=== PATIENT | female | born 1950 | race Caucasian/White ===

== ENCOUNTER 2019-11-27 16:05 | Inpatient (IN) | payer MEDICAID ==
[~2019-11-27] VITALS: Ht 154.9 cm; Wt 68.9 kg
[2019-11-27 21:48] LABS: CHLORIDE 105 mEq/L (98-107)
[2019-11-27 21:52] LABS: INR 1.2; PROTHROMBIN TIME 12.9 sec (9.6-11.0)
[2019-11-27] MEDS ORDERED: SODIUM CHLORIDE 0.9% 1,000 ML IV ONE (22:00)
[2019-11-27] MEDS ORDERED: ONDANSETRON HCL 4MG/2ML INJ IV STA (22:00)
[2019-11-27 22:01] LABS: HEMATOCRIT. 36.4 % (36.0-48.0); MEAN CORPUSCULAR HEMOGLOBIN 35.1 pg (28.0-32.0); MEAN CORPUSCULAR VOLUME 98.1 fL (81.0-99.0); MEAN PLATELET VOLUME 9.6 fl (7.4-10.4); PLATELET 360 x1000/uL (130-400); RED BLOOD CELL COUNT 3.71 mill/uL (4.2-5.4); RED CELL DISTRIBUTION WIDTH 14.9 % (11.6-14.6)
[2019-11-27 22:27] LABS: NUCLEATED RED BLOOD CELLS 1 /100 WBC; PLATELET ESTIMATE NORMAL
[2019-11-27 22:50] LABS: HEPATITIS B SURFACE ANTIGEN NEGATIVE
[2019-11-27 23:20] LABS: HEPATITIS A AB IGM NEGATIVE (NEGATIVE)
[2019-11-28] MEDS ORDERED: IOHEXOL-300 100 ML BOTTLE ONE (01:51)
[2019-11-28] MEDS: HEPARIN 5000 UNITS/ML VIAL SUBCUT SCH (11:00)
[2019-11-28] MEDS ORDERED: SODIUM CHLORIDE 0.9% 1,000 ML IV SCH (11:08)
[2019-11-28] MEDS ORDERED: ONDANSETRON HCL 4MG/2ML INJ IV PRN (11:15)
[2019-11-28] MEDS ORDERED: ACETAMINOPHEN 325MG TABLET PO PRN (11:15)
[2019-11-28] MEDS ORDERED: DEXTROSE 50% WATER 50ML SYRINGE IV PRN (11:15)
[2019-11-28 11:25] VITALS: BP 147/61
[2019-11-28 11:30] VITALS: BP 147/61
[2019-11-28] MEDS: BLOOD SUGAR DIAGNOSTIC STRIP TEST SCH ×4 (11:30→21:10)
[2019-11-28] MEDS: INSULIN LISPRO 100 UNITS/ML SUBCUT SCH ×3 (13:31→21:10)
[2019-11-28] MEDS ORDERED: PIPERACILLIN/TAZOBACTAM 3.375 G/VIAL IV SCH (14:00)
[2019-11-28] MEDS: PIPERACILLIN/TAZOBACTAM 3.375 G in DEXT 5% WATER 100 ML IV SCH ×2 (15:33→23:56)
[2019-11-28 16:00] VITALS: BP 148/61
[2019-11-28] MEDS ORDERED: LISI-186 PO (16:20)
[2019-11-28 20:00] VITALS: BP 132/62
[2019-11-28] MEDS ORDERED: TRAZODONE HCL 50MG TABLET PO PRN (21:00)
[2019-11-29] VITALS (19 sets, daily range): BP systolic 132–169; BP diastolic 60–112
[2019-11-29] MEDS: PIPERACILLIN/TAZOBACTAM 3.375 G in DEXT 5% WATER 100 ML IV SCH ×3 (05:50→21:22)
[2019-11-29] MEDS: BLOOD SUGAR DIAGNOSTIC STRIP TEST SCH ×4 (06:21→21:22)
[2019-11-29 06:46] LABS: CHLORIDE 108 mEq/L (98-107)
[2019-11-29 07:15] LABS: HEMATOCRIT. 32.1 % (36.0-48.0); HEMOGLOBIN. 11.3 g/dL (12.0-16.0); MEAN CORPUSCULAR HEMOGLOBIN 34.5 pg (28.0-32.0); MEAN CORPUSCULAR VOLUME 98.3 fL (81.0-99.0); MEAN PLATELET VOLUME 10.2 fl (7.4-10.4); PLATELET 302 x1000/uL (130-400); RED BLOOD CELL COUNT 3.27 mill/uL (4.2-5.4); RED CELL DISTRIBUTION WIDTH 14.7 % (11.6-14.6)
[2019-11-29] MEDS: INSULIN LISPRO 100 UNITS/ML SUBCUT SCH ×4 (07:50→21:22)
[2019-11-29] MEDS ORDERED: FENTANYL CITRATE/PF 50MCG/ML 2ML VIAL ONE (10:10)
[2019-11-29] MEDS ORDERED: MIDAZOLAM HCL 2 MG/2 ML VIAL ONE (10:18)
[2019-11-29] MEDS ORDERED: LIDOCAINE HCL 1% 20ML VIAL (Pyxis) INJ ONE (10:24)
[2019-11-29] MEDS ORDERED: IOHEXOL-300 50 ML BOTTLE IV ONE (10:24)
[2019-11-29] MEDS ORDERED: SODIUM BICARBONATE 4% (2.4MEQ) 5ML VIAL IV ONE (10:24)
[2019-11-29] MEDS ORDERED: FENTANYL CITRATE/PF 50MCG/ML 2ML VIAL IV ONE (11:30)
[2019-11-29 11:55] LABS: PLATELET ESTIMATE NORMAL
[2019-11-30] VITALS: BP 153/69
[2019-11-30 04:00] VITALS: BP 129/59
[2019-11-30] MEDS: PIPERACILLIN/TAZOBACTAM 3.375 G in DEXT 5% WATER 100 ML IV SCH ×2 (05:17→12:09)
[2019-11-30] MEDS: BLOOD SUGAR DIAGNOSTIC STRIP TEST SCH ×2 (06:21→12:06)
[2019-11-30 06:45] LABS: CHLORIDE 106 mEq/L (98-107)
[2019-11-30 07:42] LABS: EOSINOPHILS % 2.8 % (0.0-5.0); HEMATOCRIT. 33.6 % (36.0-48.0); HEMOGLOBIN. 11.5 g/dL (12.0-16.0); MEAN CORPUSCULAR HEMOGLOBIN 33.7 pg (28.0-32.0); MEAN CORPUSCULAR VOLUME 98.9 fL (81.0-99.0); MEAN PLATELET VOLUME 10.3 fl (7.4-10.4); MONOCYTES % 7.7 % (2.0-8.0); NEUTROPHILS % 65.5 % (40.0-76.0); PLATELET 320 x1000/uL (130-400); RED CELL DISTRIBUTION WIDTH 14.9 % (11.6-14.6)
[2019-11-30 08:00] VITALS: BP 135/57
[2019-11-30] MEDS: INSULIN LISPRO 100 UNITS/ML SUBCUT SCH ×2 (08:47→13:34)
[2019-11-30] MEDS: HEPARIN 5000 UNITS/ML VIAL SUBCUT SCH (09:39)
[2019-11-30] MEDS ORDERED: LANTUSUD SUBCUT (11:13)
[2019-11-30] MEDS ORDERED: POTASSIUM CHLORIDE 20MEQ TABLET SR PO NR (11:30)
[2019-11-30 12:00] VITALS: BP 145/53
[2019-11-30] MEDS ORDERED: INSULIN GLARGINE UD 100 UNITS/ML SYR SUBCUT SCH (12:30)
[2019-11-30] MEDS ORDERED: POTASSIUM CHLORIDE 20MEQ/PACKET PO NR (14:00)
== END 2019-11-30 15:51 | disposition home or self-care (01) | DRG 281 ==
LOC: ER 16:05 → MICUSO 23:39 → 6EST 11-28 11:30
PROVIDERS: ADMIT Internal Medicine; ATTEND Internal Medicine
PROC: 0F993ZZ Drainage of Common Bile Duct, Percutaneous Approach (ICD-10-PCS; principal; 2019-11-29)
PROC: BF111ZZ Fluoroscopy of Biliary and Pancreatic Ducts using Low Osmolar Contrast (ICD-10-PCS; 2019-11-29)
PROC: 0FB93ZX Excision of Common Bile Duct, Percutaneous Approach, Diagnostic (ICD-10-PCS; 2019-11-29)
DX: C25.9 Malignant neoplasm of pancreas, unspecified (principal); E11.65 Type 2 diabetes mellitus with hyperglycemia; D64.9 Anemia, unspecified; E44.1 Mild protein-calorie malnutrition; K80.21 Calculus of gallbladder without cholecystitis with obstruction; R16.0 Hepatomegaly, not elsewhere classified; E86.0 Dehydration; I10 Essential (primary) hypertension; K44.9 Diaphragmatic hernia without obstruction or gangrene; K76.0 Fatty (change of) liver, not elsewhere classified; L29.9 Pruritus, unspecified; R79.89 Other specified abnormal findings of blood chemistry; E66.9 Obesity, unspecified; K75.9 Inflammatory liver disease, unspecified; Z68.28 Body mass index [BMI] 28.0-28.9, adult
CPT/HCPCS: 36415; 47532; 47534; 74177; 74181; 76705; 77002; 80053; 82105; 82248; 82378; 82962; 83036; 83735; 85025; 86301; 86705; 86709; 86803; 87340; 88305; 96374; 97162; 99152; 99153; 99285; C1725; C1766; C1769; J1644; J1815; J2250; J2405; J2543; J3010; J3490; J7030; J7060; Q9967; G0500

== ENCOUNTER 2019-12-03 11:45 | Emergency (ER) | payer MEDICAID ==
[~2019-12-03] VITALS: Ht 165.1 cm; Wt 85.0 kg
[~2019-12-03 11:45] MED LIST: LANTUSUD SUBCUT; LISI-186 PO
[2019-12-03] MEDS ORDERED: SODIUM CHLORIDE 0.9% 1,000 ML IV ONE (15:08)
[2019-12-03] MEDS ORDERED: MORPHINE SULFATE 4 MG/ML CPJ (NOT FOR IM USE) IV STA (15:08)
[2019-12-03] MEDS ORDERED: ONDANSETRON HCL 4MG/2ML INJ IV STA (15:08)
[2019-12-03 18:35] VITALS: BP 121/63
== END 2019-12-03 18:41 | disposition home or self-care (01) ==
LOC: ER 11:45
DX: C25.9 Malignant neoplasm of pancreas, unspecified (principal); G89.18 Other acute postprocedural pain; E11.9 Type 2 diabetes mellitus without complications; I10 Essential (primary) hypertension; Z79.4 Long term (current) use of insulin
CPT/HCPCS: 96374; 96375; 99284; J2270; J2405; J7030

== ENCOUNTER 2019-12-21 18:00 | Emergency (ER) | payer MEDICAID ==
[~2019-12-21] VITALS: Ht 152.4 cm; Wt 78.0 kg
[2019-12-21 21:11] LABS: BASOPHILS % 1.1 % (0.0-2.0); CLARITY URINE CLOUDY (CLEAR); COLOR URINE DARK YELLOW (YELLOW); EOSINOPHILS % 2.5 % (0.0-5.0); HEMATOCRIT. 35.6 % (36.0-48.0); HEMOGLOBIN. 12.2 g/dL (12.0-16.0); KETONES URINE TRACE (NEGATIVE); LEUKOCYTE ESTERASE URINE 2+ (NEGATIVE); LYMPHOCYTES % 17.3 % (20.0-50.0); MEAN CORPUSCULAR HEMOGLOBIN 33.5 pg (28.0-32.0); MEAN CORPUSCULAR VOLUME 97.4 fL (81.0-99.0); MEAN PLATELET VOLUME 8.8 fl (7.4-10.4); MONOCYTES % 8.7 % (2.0-8.0); NEUTROPHILS % 70.4 % (40.0-76.0); NITRITE URINE POSITIVE (NEGATIVE); OCCULT BLOOD URINE 1+ (NEGATIVE); PH URINE 5.5 (4.5-8.0); PLATELET 305 x1000/uL (130-400); PROTEIN URINE 1+ (NEGATIVE); RED BLOOD CELL COUNT 3.65 mill/uL (4.2-5.4); RED CELL DISTRIBUTION WIDTH 13.5 % (11.6-14.6); SPECIFIC GRAVITY URINE 1.033 (1.005-1.030)
[2019-12-21 21:20] LABS: CHLORIDE 107 mEq/L (98-107)
[2019-12-21 21:21] LABS: INR 1.4; PROTHROMBIN TIME 14.1 sec (9.6-11.0)
[2019-12-21] MEDS ORDERED: IOHEXOL-300 100 ML BOTTLE ONE ×2 (22:03→22:37)
[2019-12-21 23:21] VITALS: BP 115/69
== END 2019-12-21 23:25 | disposition home or self-care (01) ==
LOC: ER 18:00 → CANBEDREQ 23:23 → ER 23:25
DX: Z48.00 Encounter for change or removal of nonsurgical wound dressing (principal); T85.848A Pain due to other internal prosthetic devices, implants and grafts, initial encounter; Y83.8 Other surgical procedures as the cause of abnormal reaction of the patient, or of later complication, without mention of misadventure at the time of the procedure; Y92.9 Unspecified place or not applicable; R10.9 Unspecified abdominal pain; N39.0 Urinary tract infection, site not specified; E11.9 Type 2 diabetes mellitus without complications; Z79.4 Long term (current) use of insulin; Z85.07 Personal history of malignant neoplasm of pancreas
CPT/HCPCS: 36415; 74177; 80053; 81003; 83690; 85025; 85610; 87077; 87086; 87186; 99285; Q9967

== ENCOUNTER 2020-01-26 08:36 | Day surgery (SDC) | payer MEDICAID ==
[~2020-01-26] VITALS: Ht 152.4 cm; Wt 78.0 kg
[2020-01-26] MEDS ORDERED: SODIUM BICARBONATE 4% (2.4MEQ) 5ML VIAL IV ONE (08:52)
[2020-01-26] MEDS ORDERED: LIDOCAINE HCL 1% 20ML VIAL (Pyxis) INJ ONE (08:52)
[2020-01-26] MEDS ORDERED: IOHEXOL-300 100 ML BOTTLE ONE (08:53)
[2020-01-26] MEDS ORDERED: MIDAZOLAM HCL 5 MG/5 ML VIAL ONE (09:50)
[2020-01-26] MEDS ORDERED: PROPOFOL 200MG/20ML VIAL IV ONE ×2 (09:50→10:18)
[2020-01-26] MEDS ORDERED: SUCCINYLCHOLINE CHLORIDE 200MG/10ML IV ONE (09:51)
[2020-01-26] MEDS ORDERED: PIPERACILLIN/TAZOBACTAM 3.375GM/50ML PREMIX IV ONE (10:00)
[2020-01-26] MEDS ORDERED: PIPERACILLIN/TAZ 3.375G PREMIX 50 ML IV SCH (10:15)
[2020-01-26] MEDS ORDERED: SODIUM CHLORIDE 0.9% 1,000 ML IV ONE (11:04)
[2020-01-26] MEDS ORDERED: HYDROMORPHONE HCL/PF 2MG/ML CPJ IV PRN (11:15)
[2020-01-26] MEDS ORDERED: ONDANSETRON HCL 4MG/2ML INJ IV PRN (11:15)
[2020-01-26] MEDS ORDERED: MORPHINE SULFATE 2 MG/ML CPJ (NOT FOR IM USE) IV PRN (11:15)
[2020-01-26] MEDS ORDERED: MEPERIDINE HCL/PF 25MG/ML CPJ IV PRN (11:15)
== END 2020-01-26 13:25 | disposition home or self-care (01) ==
LOC: OR 08:36 → RADANGIO 13:25
PROVIDERS: ATTEND Specialist
DX: C25.3 Malignant neoplasm of pancreatic duct (principal); K83.9 Disease of biliary tract, unspecified; E11.9 Type 2 diabetes mellitus without complications; Z79.899 Other long term (current) drug therapy; Z98.890 Other specified postprocedural states; Z20.828 Contact with and (suspected) exposure to other viral communicable diseases
CPT/HCPCS: 47538; 82962; C1725; C1766; C1769; C1876; C9803; J0330; J1644; J2250; J2543; J2704; J3490; Q9967; U0003

== ENCOUNTER → 2020-01-29 | Day surgery (SDC) | payer MEDICAID ==
[~2020-01-29] MED LIST changes: +IOHEXOL-300 50 ML BOTTLE IV ONE
== END | disposition home or self-care (01) ==
LOC: ANGIO 08:49
PROVIDERS: ATTEND Specialist
DX: C25.3 Malignant neoplasm of pancreatic duct (principal); K83.9 Disease of biliary tract, unspecified; E11.8 Type 2 diabetes mellitus with unspecified complications; Z79.4 Long term (current) use of insulin; Z79.899 Other long term (current) drug therapy; Z98.890 Other specified postprocedural states
CPT/HCPCS: 47531; Q9967

== ENCOUNTER 2021-01-27 19:08 | Emergency (ER) | payer MEDICAID ==
[~2021-01-27] VITALS: Ht 157.5 cm; Wt 53.0 kg
[~2021-01-27 19:08] MED LIST changes: +AMYL1CAP61 PO; +CHOL200059 PO; +ERGO500013 PO; +HYDR-4001 PO; -IOHEXOL-300 50 ML BOTTLE IV ONE; +LEVO750T46 MT; +METF-414 PO; +METR500T MT
[2021-01-27] MEDS ORDERED: FAMOTIDINE 20MG/2ML VIAL IV STA (22:53)
[2021-01-27] MEDS ORDERED: METOCLOPRAMIDE HCL 10MG/2ML VIAL IV STA (22:53)
[2021-01-27] MEDS ORDERED: SODIUM CHLORIDE 0.9% 1,000 ML IV ONE (23:00)
[2021-01-27 23:31] LABS: BASOPHILS % 0.6 % (0.0-2.0); HEMOGLOBIN. 9.5 g/dL (12.0-16.0); LYMPHOCYTES % 19.8 % (20.0-50.0); MEAN CORPUSCULAR HEMOGLOBIN 32.7 pg (28.0-32.0); MEAN CORPUSCULAR VOLUME 96.3 fL (81.0-99.0); MONOCYTES % 12.5 % (2.0-8.0); NEUTROPHILS % 65.1 % (40.0-76.0); PLATELET 347 x1000/uL (130-400); RED BLOOD CELL COUNT 2.91 mill/uL (4.2-5.4); RED CELL DISTRIBUTION WIDTH 16.1 % (11.6-14.6)
[2021-01-27 23:41] LABS: CHLORIDE 101 mEq/L (98-107)
[2021-01-27 23:43] LABS: CLARITY URINE CLEAR (CLEAR); COLOR URINE DARK YELLOW (YELLOW); KETONES URINE NEGATIVE (NEGATIVE); LEUKOCYTE ESTERASE URINE 3+ (NEGATIVE); NITRITE URINE NEGATIVE (NEGATIVE); OCCULT BLOOD URINE NEGATIVE (NEGATIVE); PH URINE 7.5 (4.5-8.0); PROTEIN URINE TRACE (NEGATIVE); SPECIFIC GRAVITY URINE 1.014 (1.005-1.030)
[2021-01-28] MEDS ORDERED: IOHEXOL-300 100 ML BOTTLE ONE (01:42)
[2021-01-28] MEDS ORDERED: ONDA4TAB5 MT (06:20)
[2021-01-28 06:48] VITALS: BP 173/74
== END 2021-01-28 07:15 | disposition home or self-care (01) ==
LOC: ER 19:08
DX: C25.9 Malignant neoplasm of pancreas, unspecified (principal); R11.2 Nausea with vomiting, unspecified; E11.9 Type 2 diabetes mellitus without complications; Z79.899 Other long term (current) drug therapy
CPT/HCPCS: 36415; 71045; 74177; 76830; 76856; 80053; 81003; 83690; 85025; 93005; 96361; 96374; 96375; 99285; J2765; J3490; J7030; Q9967

== ENCOUNTER 2021-02-06 10:45 | Inpatient (IN) | payer MEDICAID, OTHER ==
[~2021-02-06] VITALS: Ht 152.4 cm; Wt 40.8 kg
[~2021-02-06 10:45] MED LIST changes: +ERGO1250 PO; -ERGO500013 PO; +ONDA4TAB5 MT
[2021-02-06] MEDS ORDERED: ONDANSETRON HCL 4MG/2ML INJ IV STA (11:09)
[2021-02-06] MEDS ORDERED: MORPHINE SULFATE 4 MG/ML CPJ (NOT FOR IM USE) IV ONE ×2 (11:45→16:00)
[2021-02-06 12:54] LABS: BASOPHILS % 0.3 % (0.0-2.0); EOSINOPHILS % 0.3 % (0.0-5.0); HEMOGLOBIN. 10.9 g/dL (12.0-16.0); LYMPHOCYTES % 9.3 % (20.0-50.0); MEAN CORPUSCULAR HEMOGLOBIN 32.6 pg (28.0-32.0); MEAN CORPUSCULAR VOLUME 95.8 fL (81.0-99.0); MEAN PLATELET VOLUME 7.8 fl (7.4-10.4); NEUTROPHILS % 82.1 % (40.0-76.0); PLATELET 335 x1000/uL (130-400); RED BLOOD CELL COUNT 3.34 mill/uL (4.2-5.4); RED CELL DISTRIBUTION WIDTH 16.2 % (11.6-14.6)
[2021-02-06 13:01] LABS: CHLORIDE 100 mEq/L (98-107)
[2021-02-06 13:10] LABS: INR 1.2; PROTHROMBIN TIME 12.6 sec (9.6-11.0)
[2021-02-06 14:23] LABS: CLARITY URINE CLEAR (CLEAR); COLOR URINE DARK YELLOW (YELLOW); KETONES URINE TRACE (NEGATIVE); LEUKOCYTE ESTERASE URINE TRACE (NEGATIVE); NITRITE URINE NEGATIVE (NEGATIVE); OCCULT BLOOD URINE NEGATIVE (NEGATIVE); PH URINE 7.5 (4.5-8.0); PROTEIN URINE 1+ (NEGATIVE); SPECIFIC GRAVITY URINE 1.021 (1.005-1.030)
[2021-02-06] MEDS ORDERED: ONDANSETRON HCL 4MG/2ML INJ IV ONE (16:00)
[2021-02-06] MEDS ORDERED: ONDANSETRON HCL 4MG/2ML INJ IV PRN (18:45)
[2021-02-06] MEDS ORDERED: LISINOPRIL 5MG TABLET PO ONE (19:00)
[2021-02-06] MEDS ORDERED: NALOXONE HCL 0.4MG/ML VIAL IV PRN (19:00)
[2021-02-06] MEDS: MORPHINE SULFATE 2 MG/ML CPJ (NOT FOR IM USE) IV PRN (19:15)
[2021-02-06] MEDS ORDERED: DEXT 5%/0.45% NACL KCL 20MEQ/L 1,000 ML IV ONE (20:00)
[2021-02-06] MEDS ORDERED: HYDRALAZINE 20MG/ML VIAL IV PRN ×2 (21:18→21:22)
[2021-02-06] MEDS ORDERED: CLONIDINE 0.1MG TABLET PO PRN (21:19)
[2021-02-06] MEDS: CLONIDINE 0.1MG TABLET PO PRN (22:00)
[2021-02-06 23:00] VITALS: BP_SYST 137; BP_SYST 176; BP_DIAS 73; BP_DIAS 81
[2021-02-06] MEDS ORDERED: CEFTRIAXONE 1 G PREMIX 50 ML IV SCH (23:30)
[2021-02-06] MEDS ORDERED: DEXTROSE 50% WATER 50ML SYRINGE IV PRN (23:30)
[2021-02-07] VITALS: BP 156/76
[2021-02-07] MEDS ORDERED: CEFTRIAXONE 1,000 MG in DEXTROSE 5% WATER 50 ML IV SCH (01:00)
[2021-02-07] MEDS: DEXT 5%/0.45% NACL KCL 20MEQ/L 1,000 ML IV SCH ×3 (01:00→21:00)
[2021-02-07 04:00] VITALS: BP 142/89
[2021-02-07 06:22] LABS: BASOPHILS % 0.4 % (0.0-2.0); EOSINOPHILS % 1.1 % (0.0-5.0); HEMATOCRIT. 30.5 % (36.0-48.0); HEMOGLOBIN. 10.3 g/dL (12.0-16.0); MEAN CORPUSCULAR HEMOGLOBIN 32.5 pg (28.0-32.0); MEAN CORPUSCULAR VOLUME 96.3 fL (81.0-99.0); MEAN PLATELET VOLUME 8.1 fl (7.4-10.4); NEUTROPHILS % 74.5 % (40.0-76.0); PLATELET 314 x1000/uL (130-400); RED BLOOD CELL COUNT 3.17 mill/uL (4.2-5.4); RED CELL DISTRIBUTION WIDTH 16.5 % (11.6-14.6)
[2021-02-07 06:26] LABS: CHLORIDE 98 mEq/L (98-107)
[2021-02-07] MEDS: MORPHINE SULFATE 2 MG/ML CPJ (NOT FOR IM USE) IV PRN (06:51)
[2021-02-07] MEDS: BLOOD SUGAR DIAGNOSTIC STRIP TEST SCH ×4 (06:54→21:00)
[2021-02-07] MEDS ORDERED: POTASSIUM CHLORIDE 20MEQ TABLET SR PO NR (08:30)
[2021-02-07] MEDS: PANTOPRAZOLE SODIUM 40 MG/VIAL IV SCH (08:49)
[2021-02-07] MEDS: METOPROLOL TARTRATE 50MG TABLET PO SCH ×2 (08:51→21:00)
[2021-02-07] MEDS: AMLODIPINE 10MG TABLET PO SCH (08:52)
[2021-02-07] MEDS: INSULIN LISPRO 100 UNITS/ML SUBCUT SCH ×4 (09:02→21:00)
[2021-02-07] MEDS: CEFTRIAXONE 1,000 MG in DEXTROSE 5% WATER 50 ML IV SCH (09:45)
[2021-02-07] MEDS ORDERED: FENTANYL CITRATE/PF 50MCG/ML 2ML VIAL ONE (15:15)
[2021-02-07] MEDS ORDERED: MIDAZOLAM HCL 5 MG/5 ML VIAL ONE (15:15)
[2021-02-07] MEDS ORDERED: MIDAZOLAM HCL 5 MG/5 ML VIAL IV PRN (15:15)
[2021-02-07] MEDS ORDERED: HYDRALAZINE 10 MG in SODIUM CHLORIDE 0.9% 49.5 ML IV PRN (15:45)
[2021-02-07 19:05] LABS: HEMATOCRIT 31.4 % (36.0-48.0); HEMOGLOBIN 10.7 g/dL (12.0-16.0); MEAN CORPUSCULAR HEMOGLOBIN 32.8 pg (28.0-32.0); MEAN CORPUSCULAR VOLUME 96.4 fL (81.0-99.0); PLATELET 329 x1000/uL (130-400); RED BLOOD CELL COUNT 3.25 mill/uL (4.2-5.4); RED CELL DISTRIBUTION WIDTH 16.5 % (11.6-14.6)
[2021-02-07 19:17] LABS: CHLORIDE 103 mEq/L (98-107)
[2021-02-07 20:40] VITALS: BP 145/57
[2021-02-07] MEDS: METOCLOPRAMIDE HCL 10MG/2ML VIAL IV SCH (21:27)
[2021-02-08 00:16] VITALS: BP 125/52
[2021-02-08 04:00] VITALS: BP 141/70
[2021-02-08] MEDS: METOCLOPRAMIDE HCL 10MG/2ML VIAL IV SCH ×3 (05:51→22:33)
[2021-02-08 06:59] LABS: CHLORIDE 107 mEq/L (98-107)
[2021-02-08] MEDS: DEXT 5%/0.45% NACL KCL 20MEQ/L 1,000 ML IV SCH ×2 (07:00→18:00)
[2021-02-08] MEDS: BLOOD SUGAR DIAGNOSTIC STRIP TEST SCH ×4 (07:20→21:00)
[2021-02-08] MEDS: INSULIN LISPRO 100 UNITS/ML SUBCUT SCH ×4 (07:50→21:00)
[2021-02-08 08:00] VITALS: BP 155/72
[2021-02-08] MEDS: METOPROLOL TARTRATE 50MG TABLET PO SCH ×2 (09:00→22:33)
[2021-02-08] MEDS: PANTOPRAZOLE SODIUM 40 MG/VIAL IV SCH (09:24)
[2021-02-08] MEDS: AMLODIPINE 10MG TABLET PO SCH (09:24)
[2021-02-08] MEDS: CEFTRIAXONE 1,000 MG in DEXTROSE 5% WATER 50 ML IV SCH (09:52)
[2021-02-08 12:00] VITALS: BP 145/69
[2021-02-08 16:00] VITALS: BP 149/75
[2021-02-08 20:00] VITALS: BP 154/67
[2021-02-09] VITALS: BP 151/68
[2021-02-09] MEDS: DEXT 5%/0.45% NACL KCL 20MEQ/L 1,000 ML IV SCH ×3 (02:57→23:17)
[2021-02-09 04:00] VITALS: BP 168/76
[2021-02-09] MEDS: METOCLOPRAMIDE HCL 10MG/2ML VIAL IV SCH ×3 (05:17→21:14)
[2021-02-09] MEDS: INSULIN LISPRO 100 UNITS/ML SUBCUT SCH ×4 (06:54→21:00)
[2021-02-09] MEDS: BLOOD SUGAR DIAGNOSTIC STRIP TEST SCH ×4 (06:54→21:13)
[2021-02-09] MEDS ORDERED: LIDOCAINE HCL 1% 20ML VIAL (Pyxis) INJ ONE (08:45)
[2021-02-09] MEDS: PANTOPRAZOLE SODIUM 40 MG/VIAL IV SCH (10:02)
[2021-02-09] MEDS: CEFTRIAXONE 1,000 MG in DEXTROSE 5% WATER 50 ML IV SCH (10:02)
[2021-02-09] MEDS: METOPROLOL TARTRATE 50MG TABLET PO SCH ×2 (10:03→21:14)
[2021-02-09] MEDS: AMLODIPINE 10MG TABLET PO SCH (10:03)
[2021-02-09] MEDS: MORPHINE SULFATE 2 MG/ML CPJ (NOT FOR IM USE) IV PRN ×2 (11:24→23:59)
[2021-02-09 12:00] VITALS: BP 147/69
[2021-02-09 14:29] LABS: BASOPHILS % 0.6 % (0.0-2.0); EOSINOPHILS % 2.1 % (0.0-5.0); HEMATOCRIT. 30.6 % (36.0-48.0); HEMOGLOBIN. 10.4 g/dL (12.0-16.0); LYMPHOCYTES % 19.4 % (20.0-50.0); MEAN CORPUSCULAR HEMOGLOBIN 32.5 pg (28.0-32.0); MEAN CORPUSCULAR VOLUME 95.5 fL (81.0-99.0); MEAN PLATELET VOLUME 7.7 fl (7.4-10.4); MONOCYTES % 11.8 % (2.0-8.0); NEUTROPHILS % 66.1 % (40.0-76.0); PLATELET 377 x1000/uL (130-400); RED CELL DISTRIBUTION WIDTH 15.9 % (11.6-14.6)
[2021-02-09 14:38] LABS: CHLORIDE 109 mEq/L (98-107)
[2021-02-09 16:00] VITALS: BP 148/65
[2021-02-09 20:00] VITALS: BP 143/69
[2021-02-10] VITALS: BP 141/66
[2021-02-10 04:00] VITALS: BP 166/73
[2021-02-10] MEDS: METOCLOPRAMIDE HCL 10MG/2ML VIAL IV SCH ×3 (05:37→22:40)
[2021-02-10] MEDS: CLONIDINE 0.1MG TABLET PO PRN (05:37)
[2021-02-10] MEDS: INSULIN LISPRO 100 UNITS/ML SUBCUT SCH ×4 (07:50→21:00)
[2021-02-10] MEDS: BLOOD SUGAR DIAGNOSTIC STRIP TEST SCH ×4 (08:13→21:00)
[2021-02-10] MEDS: AMLODIPINE 10MG TABLET PO SCH (09:00)
[2021-02-10] MEDS: METOPROLOL TARTRATE 50MG TABLET PO SCH ×2 (09:00→22:40)
[2021-02-10] MEDS ORDERED: BARIUM SULFATE 176 GM SUSP.RECON ONE (09:04)
[2021-02-10] MEDS ORDERED: SIMETHICONE/SOD BICARB/CIT AC 1 EACH GRAN.EF.PK ONE (09:05)
[2021-02-10] MEDS: PANTOPRAZOLE SODIUM 40 MG/VIAL IV SCH (10:34)
[2021-02-10] MEDS: CEFTRIAXONE 1,000 MG in DEXTROSE 5% WATER 50 ML IV SCH (10:35)
[2021-02-10] MEDS: DEXT 5%/0.45% NACL KCL 20MEQ/L 1,000 ML IV SCH ×2 (10:35→18:14)
[2021-02-10 20:00] VITALS: BP 144/62
[2021-02-10] MEDS ORDERED: FAT EMULSIONS 500 ML IV SCH (21:00)
[2021-02-10] MEDS: TRAZODONE HCL 50MG TABLET PO SCH (22:40)
[2021-02-10] MEDS: TOTAL PARENTERAL NUTRITION 1,200 ML IV SCH (22:44)
[2021-02-10] MEDS: PRIMIDONE 50MG TABLET PO SCH (22:53)
[2021-02-10] MEDS: LIDOCAINE 5% PATCH TOP SCH (22:54)
[2021-02-11] VITALS: BP 158/69
[2021-02-11 04:00] VITALS: BP 148/78
[2021-02-11] MEDS ORDERED: *PATIENT'S OWN MEDICATION STORAGE XX SCH (04:30)
[2021-02-11] MEDS ORDERED: PRIM50TA31 PO (05:59)
[2021-02-11] MEDS ORDERED: TRAZ-251 PO (06:00)
[2021-02-11] MEDS: DEXT 5%/0.45% NACL KCL 20MEQ/L 1,000 ML IV SCH ×3 (06:34→18:30)
[2021-02-11] MEDS: METOCLOPRAMIDE HCL 10MG/2ML VIAL IV SCH ×3 (06:34→22:30)
[2021-02-11] MEDS: INSULIN LISPRO 100 UNITS/ML SUBCUT SCH (07:50)
[2021-02-11] MEDS: BLOOD SUGAR DIAGNOSTIC STRIP TEST SCH (07:58)
[2021-02-11 08:00] VITALS: BP 155/64
[2021-02-11 08:08] LABS: CHLORIDE 107 mEq/L (98-107)
[2021-02-11 08:20] LABS: PHOSPHORUS 2.6 mg/dL (2.5-4.9)
[2021-02-11] MEDS: PANTOPRAZOLE SODIUM 40 MG/VIAL IV SCH (08:45)
[2021-02-11] MEDS: CEFTRIAXONE 1,000 MG in DEXTROSE 5% WATER 50 ML IV SCH (08:46)
[2021-02-11] MEDS: LIPASE/PROTEASE/AMYLASE 4,200/14,200/24,600 UNITS CAP DR PO SCH ×3 (08:46→18:29)
[2021-02-11] MEDS: PRIMIDONE 50MG TABLET PO SCH (08:46)
[2021-02-11] MEDS: METOPROLOL TARTRATE 50MG TABLET PO SCH ×2 (08:47→22:30)
[2021-02-11] MEDS: AMLODIPINE 10MG TABLET PO SCH (08:48)
[2021-02-11] MEDS: LIDOCAINE 5% PATCH TOP SCH (10:00)
[2021-02-11 12:00] VITALS: BP 143/62
[2021-02-11 16:00] VITALS: BP 145/67
[2021-02-11] MEDS ORDERED: LACTULOSE 20G/30ML UDC PO NR (19:00)
[2021-02-11 20:00] VITALS: BP 152/72
[2021-02-11] MEDS: TOTAL PARENTERAL NUTRITION 1,200 ML IV SCH (22:29)
[2021-02-11] MEDS: TRAZODONE HCL 50MG TABLET PO SCH (22:30)
[2021-02-12] VITALS: BP 154/70
[2021-02-12 04:00] VITALS: BP 139/68
[2021-02-12] MEDS ORDERED: LACTULOSE 20G/30ML UDC PO SCH (05:30)
[2021-02-12] MEDS: METOCLOPRAMIDE HCL 10MG/2ML VIAL IV SCH (06:34)
[2021-02-12 08:00] VITALS: BP 149/66
[2021-02-12] MEDS: METOPROLOL TARTRATE 50MG TABLET PO SCH (09:00)
[2021-02-12] MEDS: LIPASE/PROTEASE/AMYLASE 4,200/14,200/24,600 UNITS CAP DR PO SCH (09:21)
[2021-02-12] MEDS: PRIMIDONE 50MG TABLET PO SCH (09:21)
[2021-02-12] MEDS: AMLODIPINE 10MG TABLET PO SCH (09:22)
[2021-02-12] MEDS: PANTOPRAZOLE SODIUM 40 MG/VIAL IV SCH (09:22)
[2021-02-12] MEDS: LIDOCAINE 5% PATCH TOP SCH (09:22)
[2021-02-12 12:15] VITALS: BP 149/66
== END 2021-02-12 12:51 | disposition home or self-care (01) | DRG 241 ==
LOC: ER 10:45 → 6EST 15:56 → ENRESERV 21:00
PROVIDERS: ADMIT Internal Medicine; ATTEND Internal Medicine
PROC: 0DB98ZX Excision of Duodenum, Via Natural or Artificial Opening Endoscopic, Diagnostic (ICD-10-PCS; principal; 2021-02-07)
PROC: 02HV33Z Insertion of Infusion Device into Superior Vena Cava, Percutaneous Approach (ICD-10-PCS; 2021-02-09)
PROC: B548ZZA Ultrasonography of Superior Vena Cava, Guidance (ICD-10-PCS; 2021-02-09)
DX: K29.80 Duodenitis without bleeding (principal); E43 Unspecified severe protein-calorie malnutrition; C25.9 Malignant neoplasm of pancreas, unspecified; K56.609 Unspecified intestinal obstruction, unspecified as to partial versus complete obstruction; K83.1 Obstruction of bile duct; G20 Parkinson's disease; K22.10 Ulcer of esophagus without bleeding; D64.9 Anemia, unspecified; K29.70 Gastritis, unspecified, without bleeding; E11.9 Type 2 diabetes mellitus without complications; Z20.822 Contact with and (suspected) exposure to COVID-19; K44.9 Diaphragmatic hernia without obstruction or gangrene; E87.6 Hypokalemia; I10 Essential (primary) hypertension; R74.01 Elevation of levels of liver transaminase levels; Z79.4 Long term (current) use of insulin; Z79.891 Long term (current) use of opiate analgesic; Z79.899 Other long term (current) drug therapy; Z82.49 Family history of ischemic heart disease and other diseases of the circulatory system; Z68.1 Body mass index [BMI] 19.9 or less, adult; Z92.21 Personal history of antineoplastic chemotherapy; Z90.710 Acquired absence of both cervix and uterus; Z96.89 Presence of other specified functional implants
CPT/HCPCS: 36415; 71045; 74018; 74176; 74240; 76937; 80048; 80053; 81003; 82105; 82378; 82962; 83036; 83735; 84100; 84134; 84478; 85025; 85027; 86301; 87426; 88304; 93005; 97162; 99152; 99153; 99285; C1725; C1769; C1893; C9113; J0360; J0696; J2250; J2270; J2405; J2765; J3010; J3490; J7060; J7517; G0500